=== PATIENT | female | born 1950 | race Caucasian/White ===

== ENCOUNTER → 2023-06-06 08:59 | Outpatient (REF) | payer MEDICARE, BC, SELFPAY | LOC: RAD 08:59 | PROVIDERS: ATTENDING PHYSICIAN Family Medicine | DX: R31.29 Other microscopic hematuria (principal) | CPT/HCPCS: 76770 ==

== ENCOUNTER → 2023-07-17 13:03 | Outpatient (REF) | payer MEDICARE, BC, SELFPAY | LOC: HWWDC 13:03 | PROVIDERS: ATTENDING PHYSICIAN Family Medicine | DX: Z12.31 Encounter for screening mammogram for malignant neoplasm of breast (principal) | CPT/HCPCS: 77063; 77067 ==

== ENCOUNTER 2023-08-20 07:43 | Outpatient (RCR) | payer MEDICARE, BC, SELFPAY | END 2023-08-20 23:59 | disposition home or self-care (01) | LOC: RPT 07:43 | PROVIDERS: ATTENDING PHYSICIAN Family Medicine | DX: M54.50 Low back pain, unspecified (principal); M62.830 Muscle spasm of back; Z73.6 Limitation of activities due to disability; M62.81 Muscle weakness (generalized) | CPT/HCPCS: 97110; 97162; 97530 ==

== ENCOUNTER 2023-09-21 08:58 | Outpatient (RCR) | payer MEDICARE, BC, SELFPAY | END 2023-09-21 23:59 | disposition home or self-care (01) | LOC: RPT 08:58 | PROVIDERS: ATTENDING PHYSICIAN Family Medicine | DX: M54.50 Low back pain, unspecified (principal); M62.830 Muscle spasm of back; Z73.6 Limitation of activities due to disability | CPT/HCPCS: 97110; 97530 ==

== ENCOUNTER 2023-10-17 13:46 | Outpatient (RCR) | payer MEDICARE, BC, SELFPAY | END 2023-10-17 23:59 | disposition home or self-care (01) | LOC: RPT 13:46 | PROVIDERS: ATTENDING PHYSICIAN Family Medicine | DX: M54.50 Low back pain, unspecified (principal); M62.830 Muscle spasm of back; Z73.6 Limitation of activities due to disability | CPT/HCPCS: 97110; 97530 ==

== ENCOUNTER → 2023-11-12 09:57 | Outpatient (REF) | payer MEDICARE, BC, SELFPAY | LOC: PAVMRI 09:57 | PROVIDERS: ATTENDING PHYSICIAN Psychiatry & Neurology Neurology; FAMILY PHYSICIAN Family Medicine | DX: R41.3 Other amnesia (principal) | CPT/HCPCS: 70551 ==

== ENCOUNTER 2024-01-12 11:41 | Emergency (ER) | payer MEDICARE, BC, SELFPAY ==
[2024-01-12] VITALS (8 sets, daily range): BP systolic 140–171; BP diastolic 65–99; BMI 20.7
--- NOTE | 2024-01-12 12:25 | ED.GENMED ---
History of Present Illness
General
Chief Complaint: Chest Pain
Source: patient
Exam Limitations: none
Time Seen by Provider: 01/12/24 12:08
History of Present Illness
History of Present Illness:
73-year-old female with a history of hyperlipidemia, ulcerative colitis status post total colectomy in April 2023 presents for left-sided chest pain that started briefly last night where she felt a discomfort in that area of her left breast but
says she thought maybe she just ate something too quickly. Patient says it did resolve and then this morning around 11 AM she suddenly felt pain when she took a deep breath. Patient says ever since then with deep breathing she has discomfort in
that area. She was not coughing or recently ill. She has not had any shortness of breath, leg swelling, previous DVT or PE. She is not having any urinary discomfort. She did not take anything for pain this morning. She has not had a rash in
this area. Patient has never had anything like this before. When she does move or twist she feels it slightly. Is not exertional. She has no heart disease history.
Past History
Past History
ED Past Medical History: Hypercholesterolemia and Other (Ulcerative colitis)
ED Past Surgical History: None
Social History
Tobacco: Non-smoker
Alcohol: Occasional
Drug: None
Personal:
Living: with family
Employment: Employed
Family History
Family History: Hypertension; Negative Early CAD or CAD
Review of Systems
Review of Systems
Allergies reviewed?: Yes
All Other Systems: Not applicable
Phy Exam
Physical Exam
Physical Exam:
GENERAL: Alert , in no apparent distress
EYE: pupils equal and reactive
NECK: Supple
ENT: o/p clr, mmm.
CARDIAC: Regular rate and rhythm .
LUNGS: No tachypnea or dyspnea but she is having some splinting with deep breathing, no rash
ABDOMEN: Soft, without focal tenderness, no r/g, no cvat, normal bowel sounds
NEUROLOGICAL: Alert and oriented, no focal neuro deficits
SKIN: Warm and dry, skin intact.
MUSCULOSKELETAL: No edema, well perfused. neg fernando's sign
PSYCH: Normal and appropriate interaction.
Scores
Heart Score for Chest Pain Patients
STEMI patient?: No
History: Slightly or Non-Suspicious
ECG: Nonspecific Repolarization
Age: >/= 65 years
Risk Factors: No Risk Factors
Troponin: </= Normal Limit
Heart Score for Chest Pain Patients: 3
Heart Score Risk: 2.5% MACE over next 6 weeks
Course
Orders/Labs/Results
Orders:
Orders
01/12/24 11:43
Electrocardiogram (*1) Urgent
Reason for Study: Chest Pain
EKG- Treatment ONCE
01/12/24 12:27
Complete Blood Count/With Diff Urgent
Comprehensive Metabolic Panel Urgent
Lipase Urgent
Troponin I Urgent
01/12/24 12:28
D-Dimer Urgent
01/12/24 12:43
Add On- LAB Urgent
Tests Added?: lipase
Ketorolac [Toradol] 15 mg IV NOW STA
01/12/24 14:39
CT Chest Pe Study Urgent
Comment:
Reason For Exam: L pleuritic pain
01/12/24 16:55
Troponin I Urgent
01/12/24 17:50
Doxycycline [Vibramycin] 100 mg PO NOW STA
Abnormal Lab Results
01/12/24 01/12/24
12:27 12:28
MPV 10.9 H fL
(7.4-10.4)
Absolute Lymphs (auto) 0.9 L 10^3/uL
(1.2-3.4)
Absolute Monos (auto) 0.8 H 10^3/uL
(0.1-0.6)
Neutrophils % 77.5 H %
(42.2-75.2)
Lymphocytes % 11.4 L %
(20.5-51.1)
Monocytes % 10.0 H %
(1.7-9.3)
D-Dimer 0.64 H ug/mlFEU
(0.00-0.50)
BUN 18 H mg/dl
(7-17)
Glucose 116 H mg/dl
(70-99)
Total Protein 6.1 L g/dl
(6.3-8.2)
01/12/24 12:27
01/12/24 12:27
Vital Signs
Initial and Last Documented VS:
Initial Vital Signs
Temp Pulse Resp BP Pulse Ox
98.0 F 103 16 171/90 98
01/12/24 11:43 01/12/24 11:43 01/12/24 11:43 01/12/24 11:43 01/12/24 11:43
Last Documented Vital Signs
Temp Pulse Resp BP Pulse Ox
99 F 97 18 164/88 95
01/12/24 16:24 01/12/24 16:18 01/12/24 16:18 01/12/24 16:19 01/12/24 16:18
MDM/Problems Addressed
Differential Diagnosis Includes:
costochrondrtiis, msk pain, acs, PE, pneumonia
MDM/Problems Addressed:
73 y/o F
h/o former UC
now s/p colectomty
here with L pleurtic ches tpain
splinting
no cough/fever but borderline temp here
no exertional SOB
no abdominal pain
no vomiting
no rash
lungs clear but splinting
ekg nonischemic
trop x 2 neg
d dimer elevated
CT PE shows opacity LLL
infectious vs. inflammatory
d/w ed attending
pulse ox normal
pain ontrolled with toradol
will place on doxy rather than azithro/aug (becuase of her ostomy)
and have f/u with pcp
repeat the xr or imaging in 2 weeks
pt says she had some depression since living alone but she is not SI and knows she needs to participate inactivities in her community and stay busy
she seems really well
i spoke with crisis to give her outpatient resources
this was helpful for pt
*Critical Care Note
Total Time (30-74mins, 75-104mins- exclusive of procedures): Not Applicable
ED Attending Note
-
Portions of this chart may have been created with voice recognition software.� Occasional wrong word or��sound alike� substitutions may have occurred due to the inherent limitations of voice recognition software.
Discharge Plan
Departure
Patient Disposition: Home (Routine Discharge)
Date of Disposition: 01/12/24
Time of Disposition: 17:43
Patient with high blood pressure during this ER visit?: No
Condition: Fair
Covid-19: Not Applicable
Discharge Problem:
Pneumonia
Instructions: Pneumonia, Adult (DC), Costochondritis (DC)
Prescriptions:
New
doxycycline hyclate 100 mg capsule
100 mg PO BID Qty: 14 0RF
No Action
mesalamine [Apriso] 0.375 GM capsule,extended release 24hr
4 tab PO DAILY
Patient Comments:
four times a day
Calcium
1 tab PO DAILY
Hydrocortisone
25 - 50 mg AR DAILY
prednisone 20 MG tablet
40 mg PO DAILY Qty: 10 0RF
Referrals:
Emily Davila MD [Family Provider] -
Activity Restrictions/Additional Instructions:
YOUR CHEST PAIN IS LIKELY FROM FLUID IN YOUR LUNG THAT PROBABLY IS AN INFECTION
TAKE DOXYCYCLINE 100 MG TWICE A DAY FOR 7 DAYS
HAVE YOUR DOCTOR FOLLOW THIS UP WITH IMAGING IN A FEW WEEKS TO ENSURE IT RESOLVED
TAKE MOTRIN 400 MG 2-3 TIMES A DAY WITH FOOD FOR PAIN NEEDED
RETURN FOR: WORSENING PAIN, SHORTNESS OF BREATH, HIGH FEVER, COUGHING BLOOD OR ANY CONCERNS.
YOUR HEART ENZYMES WERE NORMAL
THIS IS NOT A HEART ATTACK
YOU HAD A SMALL CYST INYOUR LIVER THAT SHOULD JUST BE CHECKED WITH YOUR DOCTOR. THIS IS NOT WORRISOME.
Interventions
Interventions:
*Risk Screen - Suicide Last Done: 01/12/24 11:43
*Neglect/Abuse Screening Last Done: 01/12/24 11:43
ED- Fall Risk Assessment Last Done: 01/12/24 12:17
ED- Cardiac Assessment Last Done: 01/12/24 12:13
Discharge Date and Time
Print Language: MALAY
[2024-01-12 12:42] LABS: % Basophils 0.4 % (0-2); % Eosinophils 0.2 % (0-6); % Immature Granulocytes 0.5 % (0-0.5); % Lymphocytes 11.4 % (20.5-51.1); % Neutrophils 77.5 % (42.2-75.2); Absolute Lymphocytes 0.9 10^3/uL (1.2-3.4); Absolute Monocytes 0.8 10^3/uL (0.1-0.6); Absolute Neutrophils 6.4 10^3/uL (1.4-6.5); Hematocrit 37.9 % (37.0-47.0); Hemoglobin 12.5 g/dL (12.0-16.0); Mean Corpuscular Hgb 29.1 pg (27.0-31.0); Mean Corpuscular Volume 88.1 fL (81.0-99.0); Mean Platelet Volume 10.9 fL (7.4-10.4); Nucleated Red Blood Cells % 0 %; Platelet Count 192 10^3/uL (130-400); Red Cell Dist. Width 13.1 % (11.5-14.5); White Blood Cell Count 8.3 10^3/uL (4.8-10.8)
[2024-01-12 12:52] LABS: ALT (SGPT) 17 U/L (0-35); AST (SGOT) 25 U/L (14-36); Alkaline Phosphatase 71 U/L (38-126); Blood Urea Nitrogen 18 mg/dl (7-17); Calcium 9.6 mg/dl (8.4-10.2); Carbon Dioxide 29 mmol/L (22-30); Chloride 102 mmol/L (98-107); Estimated Creatinine Clearance 68 ml/min; Glucose 116 mg/dl (70-99); Potassium 4.1 mmol/L (3.5-5.1); Sodium 141 mmol/L (135-145); Total Bilirubin 0.8 mg/dl (0.2-1.3); Total Protein 6.1 g/dl (6.3-8.2); eGFR > 60.00
[2024-01-12 13:03] LABS: Troponin I < 0.012 ng/ml
[2024-01-12] MEDS: TORADOL 15 MG IV (13:14)
[2024-01-12 13:39] LABS: D-Dimer 0.64 ug/mlFEU (0.00-0.50)
[2024-01-12 13:53] LABS: Lipase 115 U/L (23-300)
[2024-01-12 17:31] LABS: Troponin I < 0.012 ng/ml
[2024-01-12] MEDS: VIBRAMYCIN 100 MG PO (17:57)
== END 2024-01-12 18:12 | disposition home or self-care (01) ==
LOC: EMR 11:41
PROVIDERS: Physician Assistant; Student in an Organized Health Care Education/Training Program; EMERGENCY PHYSICIAN Emergency Medicine; FAMILY PHYSICIAN Family Medicine
DX: J18.9 Pneumonia, unspecified organism (principal); E78.00 Pure hypercholesterolemia, unspecified; Z90.49 Acquired absence of other specified parts of digestive tract; Z87.19 Personal history of other diseases of the digestive system; Z60.2 Problems related to living alone
CPT/HCPCS: 96374; 99284; 71275; 80053; 83690; 84484; 85025; 85379; 93005; Q9967

== ENCOUNTER → 2024-02-06 11:38 | Outpatient (REF) | payer MEDICARE, BC, SELFPAY | LOC: RAD 11:38 | PROVIDERS: ATTENDING PHYSICIAN Family Medicine | DX: J18.9 Pneumonia, unspecified organism (principal) | CPT/HCPCS: 71046 ==

== ENCOUNTER → 2024-07-22 15:05 | Outpatient (REF) | payer MEDICARE, BC, SELFPAY | LOC: HWWDC 15:05 | PROVIDERS: ATTENDING PHYSICIAN Obstetrics & Gynecology Gynecology; FAMILY PHYSICIAN Family Medicine | DX: Z12.31 Encounter for screening mammogram for malignant neoplasm of breast (principal) | CPT/HCPCS: 77063; 77067 ==

== ENCOUNTER 2025-03-11 08:58 | Emergency (ER) | payer MEDICARE, BC, SELFPAY ==
[2025-03-11 08:59] VITALS: BP 140/71
--- NOTE | 2025-03-11 09:24 | ED.GENMED ---
History of Present Illness
General
Chief Complaint: Head Injury
Source: patient
Exam Limitations: none
Time Seen by Provider: 03/11/25 09:05
History of Present Illness
History of Present Illness:
74-year-old female not anticoagulated presents with what was self described as a trip and fall in the bathroom. She hit the back of her head on the floor. She does not think she lost consciousness. She is accompanied by her [id number] who is
concerned as the patient has cognitive dysfunction and memory issues. [id number] does state that occasionally she forgets to eat and is worried that she may be malnourished. Patient notes discomfort to the posterior aspect of her head where
she hit her head she noted a laceration. She denies any significant neck pain.
Past History
Past History
ED Past Medical History: Hypercholesterolemia and Other (Ulcerative colitis)
ED Past Surgical History: None
Social History
Tobacco: Non-smoker
Alcohol: Occasional
Drug: None
Personal:
Living: with family
Employment: Employed
Family History
Family History: Hypertension; Negative Early CAD or CAD
Phy Exam
Physical Exam
Physical Exam:
General: Well-appearing female no acute respiratory distress
HEENT: NC laceration to posterior scalp measuring about 3cm. PERRL. TM's normal.
Heart: RRR
Lungs: CTA
Ext: no cyanosis
Neurologic exam: Alert and oriented normal gait conversing appropriately good strength of the upper and lower extremities
Course
Orders/Labs/Results
Orders:
Orders
03/11/25 09:12
CT Cervical Spine W/o Iv Contr Urgent
Comment:
Reason For Exam: fall
CT Head W/o Iv Contrast Urgent
Comment:
Reason For Exam: fall
03/11/25 09:57
Complete Blood Count/With Diff Urgent
Comprehensive Metabolic Panel Urgent
Abnormal Lab Results
03/11/25
09:57
MCHC 32.5 L g/dL
(33.0-37.0)
MPV 10.9 H fL
(7.4-10.4)
Abs Immat Gran (auto) 0.1 H 10^3/uL
(0-0.05)
Absolute Neuts (auto) 7.0 H 10^3/uL
(1.4-6.5)
Absolute Lymphs (auto) 1.0 L 10^3/uL
(1.2-3.4)
Immature Gran % 0.6 H %
(0-0.5)
Neutrophils % 81.2 H %
(42.2-75.2)
Lymphocytes % 11.5 L %
(20.5-51.1)
Glucose 105 H mg/dl
(70-99)
03/11/25 09:57
03/11/25 09:57
Vital Signs
Initial and Last Documented VS:
Initial Vital Signs
Temp Pulse Resp BP Pulse Ox
97.3 F 66 18 140/71 100
03/11/25 08:59 03/11/25 08:59 03/11/25 08:59 03/11/25 08:59 03/11/25 08:59
Last Documented Vital Signs
Temp Pulse Resp BP Pulse Ox
97.3 F 66 18 140/71 100
03/11/25 08:59 03/11/25 08:59 03/11/25 08:59 03/11/25 08:59 03/11/25 09:26
MDM/Problems Addressed
Differential Diagnosis Includes:
Likely mechanical fall with head strike. The laceration is noted to the posterior scalp. CT of head and cervical spine ordered basic labs ordered
*Pulse Oximetry
SaO2: 100
Oxygen Mode of Delivery: Room air
Patient hypoxic: no
*Critical Care Note
Total Time (30-74mins, 75-104mins- exclusive of procedures): Not Applicable
Update Note
Update Note:
Head CT negative for acute traumatic injury as is a cervical spine. The wound was cleansed with saline and anesthetized with 1% lidocaine with epinephrine. It was held in approximation with 5 skin briana. Wound care instructions were given.
Stable for discharge. Labs reviewed without significant finding
ED Attending Note
-
Portions of this chart may have been created with voice recognition software.� Occasional wrong word or��sound alike� substitutions may have occurred due to the inherent limitations of voice recognition software.
Discharge Plan
Departure
Patient Disposition: Home (Routine Discharge)
Date of Disposition: 03/11/25
Time of Disposition: :
Patient with high blood pressure during this ER visit?: No
Discharge Problem:
Laceration
Instructions: Laceration Repair With Briana (DC), Minor Head Injury (DC)
Prescriptions:
No Action
mesalamine [Apriso] 0.375 GM capsule,extended release 24hr
4 tab PO DAILY
Patient Comments:
four times a day
Calcium
1 tab PO DAILY
Hydrocortisone
25 - 50 mg IA DAILY
prednisone 20 MG tablet
40 mg PO DAILY Qty: 10 0RF
doxycycline hyclate 100 mg capsule
100 mg PO BID Qty: 14 0RF
Referrals:
Emily Davila MD [Family Provider, Family Practice]
Activity Restrictions/Additional Instructions:
As discussed, there is 5 briana in your scalp. These need to be removed in 7 to 10 days. Please set an appointment with for your family doctor for this. You may use ibuprofen or Tylenol for headache if you needed. You may ice to the sore spot.
May wash your hair with soapy water. Return if needed otherwise
Interventions
Interventions:
*Risk Screen - Suicide Last Done: 03/11/25 08:59
ED- Neurological Assessment Last Done: 03/11/25 09:10
ED-Skin Assessment Last Done: 03/11/25 09:10
Discharge Date and Time
Print Language: VINCENTIAN
[2025-03-11 10:09] LABS: Hematocrit 42.5 % (37.0-47.0); Hemoglobin 13.8 g/dL (12.0-16.0); Mean Corp Hgb Conc. 32.5 g/dL (33.0-37.0); Mean Corpuscular Volume 91.4 fL (81.0-99.0); Nucleated Red Blood Cells % 0 %; Platelet Count 212 10^3/uL (130-400); Red Cell Dist. Width 13.1 % (11.5-14.5)
[2025-03-11 10:38] LABS: ALT (SGPT) 26 U/L (0-35); AST (SGOT) 32 U/L (14-36); Albumin 4.2 g/dl (3.5-5.0); Alkaline Phosphatase 64 U/L (38-126); Blood Urea Nitrogen 17 mg/dl (7-17); Calcium 9.3 mg/dl (8.4-10.2); Carbon Dioxide 27 mmol/L (22-30); Chloride 106 mmol/L (98-107); Glucose 105 mg/dl (70-99); Potassium 4.3 mmol/L (3.5-5.1); Sodium 136 mmol/L (135-145); Total Protein 6.6 g/dl (6.3-8.2); eGFR > 60.00
== END 2025-03-11 11:46 | disposition home or self-care (01) ==
LOC: EMR 08:58
PROVIDERS: Physician Assistant; EMERGENCY PHYSICIAN Emergency Medicine; FAMILY PHYSICIAN Family Medicine
DX: S01.01XA Laceration without foreign body of scalp, initial encounter (principal); W01.198A Fall on same level from slipping, tripping and stumbling with subsequent striking against other object, initial encounter; Y92.002 Bathroom of unspecified non-institutional (private) residence as the place of occurrence of the external cause; E78.00 Pure hypercholesterolemia, unspecified; K51.90 Ulcerative colitis, unspecified, without complications
CPT/HCPCS: 99284; 12002; 70450; 72125; 80053; 85025